=== PATIENT | female | born 1970 | race Asian ===

== ENCOUNTER 2021-10-17 04:37 | Day surgery (SDC) | payer OTHER ==
[2021-10-14 16:39] VITALS: BMI 24.0
[2021-10-17 12:22] VITALS: TEMP 97.5
[2021-10-17 12:54] VITALS: BP 112/70; PULSE 60
== END 2021-10-17 13:32 | disposition home or self-care (01) ==
LOC: JASU-ENDO 04:37
PROVIDERS: ATTEND Internal Medicine Gastroenterology
PROC: 0DBK8ZX Excision of Ascending Colon, Via Natural or Artificial Opening Endoscopic, Diagnostic (ICD-10-PCS; principal; 2021-10-17 11:00)
DX: Z12.11 Encounter for screening for malignant neoplasm of colon (principal); D12.2 Benign neoplasm of ascending colon; Z80.0 Family history of malignant neoplasm of digestive organs; I10 Essential (primary) hypertension
CPT/HCPCS: 81025; 88305-TC